=== PATIENT | female | born 1975 | race Caucasian/White ===

== ENCOUNTER 2019-10-03 18:01 | Emergency (ER) | payer BC ==
[2019-10-03 18:37] LABS: ABSOLUTE BASOPHILS # (AUTO) 0.1 10^3/uL (0.0-0.2); ABSOLUTE EOSINOPHILS # (AUTO) 0.1 10^3/uL (0.0-0.6); ABSOLUTE LYMPHOCYTES (AUTO) 4.1 10^3/uL (0.5-4.7); ABSOLUTE MONOCYTES (AUTO) 1.2 10^3/uL (0.1-1.4); ABSOLUTE NEUT (AUTO) 9.5 10^3/uL (1.7-8.2); BASOPHILS % (AUTO) 0.5 % (0-2); EOSINOPHILS % (AUTO) 0.8 % (0-6); HEMATOCRIT 48.4 % (36.0-47.0); HEMOGLOBIN 16.3 g/dL (12.0-15.5); LYMPHOCYTES % (AUTO) 27.1 % (13-45); MEAN CORPUSCULAR HEMOGLOBIN 32.1 pg (27.0-33.4); MEAN CORPUSCULAR HGB CONC 33.7 g/dL (32.0-36.0); MEAN CORPUSCULAR VOLUME 95 fl (80-97); MONOCYTES % (AUTO) 8.3 % (3-13); PLATELET COUNT 291 10^3/uL (150-450); RED BLOOD COUNT 5.07 10^6/uL (3.72-5.28); RED CELL DISTRIBUTION WIDTH 14.2 % (11.5-14.0); SEGMENTED NEUTROPHILS % (AUTO) 63.3 % (42-78); TOTAL CELLS COUNTED % (AUTO) 100 %
--- NOTE | 2019-10-03 18:39 | ER Document Report ---
ED Cardiac - General Mode of Arrival: Medic Information source: Patient - HPI Patient complains to provider of: Chest pain Was the onset of pain: Sudden Chest pain location: Substernal Quality of pain: Pressure, Sharp Chest pain radiation location: Left jaw Pain level currently: 4 Chest pain precipitating factors: At Rest Cardiac risk factors: Smoker, Dyslipidemia. denies: Hx MA Associated symptoms: Nausea/vomiting. denies: Abdominal pain, Anxiety, Rash Exacerbated by: Denies Relieved by: Nothing Similar symptoms previously: No Recently seen / treated by doctor: No <ДМИТРИЙ BONE - Last Filed: 10/03/19 20:35> <JANET BOTELLO - Last Filed: 10/03/19 23:39> - General Chief Complaint: Chest Pain Stated Complaint: CHEST PAIN Time Seen by Provider: 10/03/19 18:12 Notes: Patient states she was sitting in a chair around 5:30 PM and developed left- sided chest pain that radiated into the left side of her jaw. Patient states that she went to lay down on the couch got sick and vomited x1 episode and then states that she passed out. Patient states that her was unable to arouse her for a few seconds. Patient denies any cough or shortness of breath. Patient denies any abdominal pain or diarrhea. Patient does complain of continued chest pain that she describes as sharp pressure. Patient states she has a history of tachycardia and takes a beta-sandra for this although is uncertain of the name. Patient states she had a heart catheterization last year and was found to have a 35% blockage in a vessel. Patient states that she was given nitroglycerin per EMS and her pain improved momentarily and then return. Patient mildly hypotensive at this time. (ДМИТРИЙ BONE) - Related Data Allergies/Adverse Reactions: No Known Allergies Allergy (Verified 10/03/19 18:22) Past Medical History - General Information source: Patient - Social History Smoking Status: Current Every Day Smoker Frequency of alcohol use: None Drug Abuse: None Lives with: Family Family History: Reviewed & Not Pertinent Patient has homicidal ideation: No - Past Medical History Cardiac Medical History: Reports: Hx Coronary Artery Disease, Hx Hypercholesterolemia Neurological Medical History: Reports: Hx Migraine Musculoskeletal Medical History: Reports Hx Arthritis, Reports Hx Fibromyalgia Past Surgical History: Reports: Hx Cardiac Catheterization, Hx Hysterectomy, Hx Orthopedic Surgery <ДМИТРИЙ BONE - Last Filed: 10/03/19 20:35> Review of Systems - Review of Systems Constitutional: No symptoms reported. denies: Fever, Recent illness EENT: No symptoms reported Cardiovascular: Chest pain, Syncope Respiratory: No symptoms reported. denies: Cough, Short of breath Gastrointestinal: Nausea, Vomiting. denies: Abdominal pain Genitourinary: No symptoms reported Female Genitourinary: No symptoms reported Musculoskeletal: No symptoms reported. denies: Back pain Skin: No symptoms reported Hematologic/Lymphatic: No symptoms reported Neurological/Psychological: No symptoms reported <ДМИТРИЙ BONE - Last Filed: 10/03/19 20:35> Physical Exam - General General appearance: Appears well, Alert In distress: None - HEENT Head: Normocephalic, Atraumatic Eyes: Normal Conjunctiva: Normal Nasal: Normal Mouth/Lips: Normal Mucous membranes: Normal Neck: Normal, Supple. No: Lymphadenopathy - Respiratory Respiratory status: No respiratory distress Chest status: Tender Breath sounds: Normal Chest palpation: Normal - Cardiovascular Rhythm: Tachycardia Heart sounds: S1 appreciated, S2 appreciated Murmur: No - Abdominal Inspection: Normal Distension: No distension Bowel sounds: Normal Tenderness: Nontender Organomegaly: No organomegaly - Back Back: Normal, Nontender. No: CVA tenderness - Extremities General upper extremity: Normal inspection, Normal strength General lower extremity: Normal inspection, Normal strength - Neurological Neuro grossly intact: Yes Cognition: Normal [place] Coma Scale Eye Opening: Spontaneous [place] Coma Scale Verbal: Oriented Mona Coma Scale Motor: Obeys Commands [place] Coma Scale Total: 15 - Psychological Associated symptoms: Normal affect, Normal mood - Skin Skin Temperature: Warm Skin Moisture: Dry Skin Color: Normal <ДМИТРИЙ BONE - Last Filed: 10/03/19 20:35> - Vital signs Vitals: Temp 98.2 F 10/03/19 18:01 Course - Laboratory Result Diagrams: 10/03/19 18:30 10/03/19 18:30 - Diagnostic Test Radiology reviewed: Pending, Image reviewed - EKG Interpretation by Fl EKG shows normal: Sinus rhythm Rate: Tachycardia <ДМИТРИЙ BONE - Last Filed: 10/03/19 20:35> - Laboratory Result Diagrams: 10/03/19 18:30 10/03/19 18:30 <JANET BOTELLO - Last Filed: 10/03/19 23:39> - Re-evaluation Re-evalutation: 10/03/19 20:35 Patient complains of continued midsternal chest pain. Patient denies any radiation of the pain. Patient's blood pressure has improved after IV fluid bolus. Report and handoff given to FABIEN Reeder (ДМИТРИЙ BONE) 10/03/19 23:37 Was a significant delay because it first of the initial troponin draw was missed by 1 hour, after this it hemolyzed, then there was some delay in obtaining it again. Results are finally back, I did discuss the results in detail with patient. There is evidence of mild acidosis and dehydration, patient has been given to IV normal saline bags, on my evaluation patient is well-appearing, smiling, talkative, and she states she has no current symptoms. She has no current complaints. She states she is ready to go home. Patient had been previously discussed with Dr. Womack, heart score is 2, reported event is somewhat strange but I still have a low suspicion of acute/emergent intrathoracic etiology. Patient states she has close follow-up with her corporate communications [facility]. Discussed return precautions. Patient states understanding agreement. Stable and well-appearing at time of discharge. (JANET BOTELLO) - Vital Signs Vital signs: Temp Pulse Resp BP Pulse Ox 98.2 F 12 104/75 100 10/03/19 18:07 10/03/19 19:00 10/03/19 19:01 10/03/19 19:01 - Laboratory Laboratory results interpreted by me: 10/03/19 10/03/19 10/03/19 18:30 18:30 18:30 WBC 15.0 H Hgb 16.3 H Hct 48.4 H RDW 14.2 H Absolute Neuts (auto) 9.5 H Chloride 111 H Carbon Dioxide 20 L Glucose 116 H Calcium 11.2 H Magnesium 2.5 H Alkaline Phosphatase 146 H Discharge <ДМИТРИЙ BONE - Last Filed: 10/03/19 20:35> <JANET BOTELLO - Last Filed: 10/03/19 23:39> - Discharge Clinical Impression: Chest pain Qualifiers: Chest pain type: unspecified Qualified Code(s): R07.9 - Chest pain, unspecified Episode of syncope Qualifiers: Syncope type: unspecified Qualified Code(s): R55 - Syncope and collapse Vomiting Qualifiers: Vomiting type: unspecified Vomiting Intractability: non-intractable Nausea presence: unspecified Qualified Code(s): R11.10 - Vomiting, unspecified Condition: Stable Disposition: HOME, SELF-CARE Additional Instructions: Your work-up does show dehydration and some acidic properties as we discussed, as result you were flushed with the IV fluids. Your remaining work-up does not show any concerning findings and is very reassuring. Improve your hydration at home, follow-up with your corporate communications manager for additional management, call on Saturday for your follow-up. Come back if you worsen including passing out again, return for severe worsening pain, fever, returned vomiting, or any other concerning or worsening symptoms. See additional instructions below. Syncopal Episode Syncope (fainting or near-fainting) can occur from many different health problems. Or it can be a simple fainting spell requiring no treatment. It is safe for you to go home, but further evaluation will likely be necessary. Your work-up may include tests for internal bleeding, heart disease, medication problems, or near-strokes. Tests are not always required, however, depending on the nature of your problem. The warning signs of an impending faint include: dizziness, lighthe adedness, nausea, hot flashes, tingling, and weakness. If this happens, lay down and put your feet up, then wait until all of these symptoms have passed before standing up again. If these episodes become recurrent, or if you develop chest pain, heart palpitations, mental confusion, blurred vision, or headache, then you should call the physician, or go to the emergency room.
[2019-10-03] MEDS ORDERED: ACETAMINOPHEN 325 MG TABLET PO ONE (18:48)
[2019-10-03] MEDS ORDERED: NORMAL SALINE 1000 ML 1,000 ML IV ONE (18:49)
[2019-10-03 18:56] LABS: ALKALINE PHOSPHATASE 146 U/L (38-126); ANION GAP 12 (5-19); ASPARTATE AMINO TRANSFERASE 36 U/L (14-36); BILIRUBIN,TOTAL 0.3 mg/dL (0.2-1.3); BLOOD UREA NITROGEN 14 mg/dL (7-20); CALCIUM 11.2 mg/dL (8.4-10.2); CARBON DIOXIDE 20 mmol/L (22-30); CHLORIDE 111 mmol/L (98-107); CREATINE KINASE 35 U/L (30-135); GLUCOSE 116 mg/dL (75-110); POTASSIUM 3.9 mmol/L (3.6-5.0); TOTAL PROTEIN 7.8 g/dL (6.3-8.2)
[2019-10-03 19:07] LABS: CREATINE KINASE MB 0.49 ng/mL (<4.55); TROPONIN I < 0.012 ng/mL
[2019-10-03] MEDS ORDERED: FENTANYL CITRATE INJ/PF 100 MCG/2 ML AMPUL IV ONE (19:18)
[2019-10-03] MEDS ORDERED: MORPHINE SULFATE 10 MG/ML INJ IV ONE (20:34)
--- NOTE | 2019-10-03 20:40 | RADIOLOGY REPORT (SQ) ---
EXAM DESCRIPTION: XR CHEST 1 VIEW COMPLETED DATE/TME: 10/03/2019 18:26 CLINICAL HISTORY: 43 years Female cp COMPARISON: None. FINDINGS: The cardiomediastinal silhouette appears unremarkable. No consolidating infiltrates or pleural effusions. No pneumothorax. Old rib fractures bilaterally IMPRESSION: No acute abnormality is identified.
--- NOTE | 2019-10-03 21:24 | EKG REPORT ---
SEVERITY:- OTHERWISE NORMAL ECG - SINUS TACHYCARDIA : Confirmed by: Sara Hudson MD 03-Oct-2019 21:23:39
[2019-10-03 23:52] VITALS: BP 122/84
== END 2019-10-03 23:53 | disposition home or self-care (01) ==
LOC: ER 18:01
DX: R07.89 Other chest pain (principal); R11.2 Nausea with vomiting, unspecified; R55 Syncope and collapse; E86.0 Dehydration; E87.2 Acidosis; I25.10 Atherosclerotic heart disease of native coronary artery without angina pectoris; F17.200 Nicotine dependence, unspecified, uncomplicated; R00.0 Tachycardia, unspecified; Z79.899 Other long term (current) drug therapy
CPT/HCPCS: 93005; 99285; 96361; 96374; 96375; 36415; 82553; 82550; 83735; 85025; 80053; 84484; 85379; 71045; 93010; J3010; J2270; J7030